=== PATIENT | female | born 1990 | race Two or more races ===

== ENCOUNTER 2023-01-07 09:07 | Outpatient (CLI) | payer OTHER | END 2023-01-07 10:04 | disposition home or self-care (01) | LOC: PRENATAL 09:07 | PROVIDERS: ATTEND Obstetrics & Gynecology Maternal & Fetal Medicine | DX: O36.80X0 Pregnancy with inconclusive fetal viability, not applicable or unspecified (principal); Z36.82 Encounter for antenatal screening for nuchal translucency; O34.10 Maternal care for benign tumor of corpus uteri, unspecified trimester; Z3A.11 11 weeks gestation of pregnancy ==

== ENCOUNTER 2023-03-11 13:08 | Outpatient (CLI) | payer OTHER | END 2023-03-11 13:10 | disposition home or self-care (01) | LOC: PRENATAL 13:08 | PROVIDERS: ATTEND Obstetrics & Gynecology Maternal & Fetal Medicine | DX: O35.9XX0 Maternal care for (suspected) fetal abnormality and damage, unspecified, not applicable or unspecified (principal); O44.00 Complete placenta previa NOS or without hemorrhage, unspecified trimester; Z3A.20 20 weeks gestation of pregnancy ==

== ENCOUNTER 2023-05-09 13:23 | Outpatient (CLI) | payer OTHER | END 2023-05-09 13:24 | disposition home or self-care (01) | LOC: PRENATAL 13:23 | PROVIDERS: ATTEND Obstetrics & Gynecology Maternal & Fetal Medicine | DX: O26.849 Uterine size-date discrepancy, unspecified trimester (principal); O10.019 Pre-existing essential hypertension complicating pregnancy, unspecified trimester; O34.10 Maternal care for benign tumor of corpus uteri, unspecified trimester; Z3A.28 28 weeks gestation of pregnancy ==

== ENCOUNTER 2023-06-20 13:29 | Outpatient (CLI) | payer OTHER | END 2023-06-20 13:30 | disposition home or self-care (01) | LOC: PRENATAL 13:29 | PROVIDERS: ATTEND Obstetrics & Gynecology Maternal & Fetal Medicine | DX: O26.849 Uterine size-date discrepancy, unspecified trimester (principal); O10.019 Pre-existing essential hypertension complicating pregnancy, unspecified trimester; O34.10 Maternal care for benign tumor of corpus uteri, unspecified trimester; O36.8199 Decreased fetal movements, unspecified trimester, other fetus; Z3A.34 34 weeks gestation of pregnancy ==

== ENCOUNTER 2023-07-04 20:40 | Outpatient (CLI) | payer OTHER ==
[2023-07-04] MEDS ORDERED: RINGERS SOLUTION,LACTATED 1,000 ML IV SCH (22:00)
[2023-07-04] MEDS ORDERED: LABETALOL HCL 100 MG TABLET PO SCH (22:00)
[2023-07-04 22:07] LABS: URINE APPEARANCE Clear; URINE BILIRRUBIN Negative (NEGATIVE); URINE BLOOD Negative; URINE COLOR Yellow; URINE GLUCOSE Negative (NEGATIVE); URINE LEUKOCYTE Negative; URINE NITRATE Negative; URINE PROTEIN Negative (NEGATIVE); URINE UROBILINOGEN 0.2 E.U./dl
[2023-07-04 22:07] LABS: HEMATOCRIT 33.7 % (36.0-45.00); HEMOGLOBIN 11.6 g/dL (12.0-15.00); MEAN CELL VOLUME 95.8 fL (80.00-100.00); MEAN CORPUSCULAR HGB CONC 34.4 g/dl (32.0-36.0); PLATELET COUNT 238 K/uL (150-450); RED BLOOD COUNT 3.51 M/uL (4.00-6.00)
[2023-07-04 22:08] LABS: URINE BACTERIA 219.1 uL (0.0-1933); URINE EPITHELIAL CELLS 21.3 uL (0.0-38.8); URINE RBC 2.2 uL (0.0-20.8); URINE WBC 3.2 uL (0.0-23.2)
[2023-07-04] MEDS ORDERED: ECOTRIN81 MG PO (22:11)
[2023-07-04] MEDS ORDERED: PRENATAL + DHA1 EAC1 PO (22:11)
[2023-07-04] MEDS ORDERED: LABETALOL HCL100 MG PO (22:11)
[2023-07-04 22:30] LABS: ALBUMIN 2.6 gm/dL (3.4-5.0); BILIRUBIN TOTAL 1.01 mg/dL (0.3-1.2); CREATININE SERUM 0.57 mg/dL (0.55-1.02); GFR 122.92; GLOBULINA 3.5 G/DL (2.4-3.5); POTASSIUM 3.88 mEq/L (3.5-5.1); TOTAL PROTEIN 6.1 gm/dL (6.4-8.2)
[2023-07-04 22:46] LABS: FIBRINOGEN 496 mg/dL (187.0-446.0); INR < 0.93; PARTIAL THROMBOPLASTIN TIME 27.2 SECONDS (22.0-34.0); PROTHROMBIN TIME 9.6 SECONDS (9.0-11.5)
[2023-07-05 22:19] LABS: URINE PROT QUANT 24HR 7.3 MG/DL
[2023-07-05 22:21] LABS: URINE PROT QUANT 24 HR 204.4 MG/24HR (42-225)
== END 2023-07-05 23:05 | disposition home or self-care (01) ==
LOC: OBS/DEL 20:40
PROVIDERS: ATTEND Obstetrics & Gynecology
DX: O16.3 Unspecified maternal hypertension, third trimester (principal); Z3A.36 36 weeks gestation of pregnancy; O26.849 Uterine size-date discrepancy, unspecified trimester; O36.8199 Decreased fetal movements, unspecified trimester, other fetus; O10.019 Pre-existing essential hypertension complicating pregnancy, unspecified trimester